=== PATIENT | male | born 1965 | race American Indian/Alaskan Native ===

== ENCOUNTER 2017-03-26 18:51 | Inpatient (IN) | payer MEDICARE, MEDICAID, OTHER ==
[2017-03-26 18:52] VITALS: BMI 44.1
[2017-03-26 20:48] LABS: URINE BILIRUBIN NEGATIVE (NEGATIVE); URINE BLOOD NEGATIVE (NEGATIVE); URINE GLUCOSE (UA) NEGATIVE (NEGATIVE); URINE LEUKOCYTE ESTERASE NEGATIVE Leu/uL (NEGATIVE); URINE NITRATE NEGATIVE (NEGATIVE); URINE PROTEIN NEGATIVE mg/dL (<30 mg/dL); URINE UROBILINOGEN 0.2 E.U./dL (<1 E.U./dL)
[2017-03-26 20:51] LABS: URINE APPEARANCE CLEAR (CLEAR); URINE COLOR YELLOW (YELLOW)
[2017-03-26 20:58] LABS: BASO # 0.07 K/mm3 (0.0-2.0); BASO % 0.5 % (0.0-3.0); EOS # 1.1 (0.0-0.7); EOS % 8.1 % (1.5-5.0); GRAN # 7.83 (1.4-6.5); GRAN % 57.6 % (50.0-68.0); HEMOGLOBIN 12.9 gm/dL (14.0-18.0); LYMPH # 3.7 (1.2-3.4); LYMPH % 27.2 % (22.0-35.0); MEAN CELL VOLUME 95.9 fL (80.0-105.0); MEAN CORPUSCULAR HEMOGLOBIN 31.2 pg (25.0-35.0); MEAN CORPUSCULAR HGB CONC 32.5 g/dl (31.0-37.0); MEAN PLATELET VOLUME 9.6 fl (7.0-11.0); MONO # 0.9 (0.1-0.6); MONO % 6.6 % (1.0-6.0); PLATELET COUNT 371 10^3/uL (120.0-450.0); RBC 4.14 10^6/uL (3.5-6.1); RED CELL DISTRIBUTION WIDTH 13.3 % (11.5-14.5); WHITE BLOOD COUNT 13.6 10^3/ul (4.5-11.0)
[2017-03-26 21:05] LABS: ALBUMIN 3.9 g/dL (3.0-4.8); ALT/SGPT 41 U/L (7-56); AST/SGOT 22 U/L (15-59); BLOOD UREA NITROGEN 14 mg/dL (7-21); CALCIUM 9.2 mg/dL (8.4-10.5); GFR AFRICAN-AMERICAN > 60; GFR NON-AFRICAN AMERICAN > 60
[2017-03-26 21:08] LABS: SALICYLATE < 1 mg/dL (2.0-20.0)
[2017-03-26 21:09] LABS: ACETAMINOPHEN < 10.0 ug/ml (10.0-20.0)
--- NOTE | 2017-03-26 21:10 | ED PDOC ---
Arrival/HPI - General Chief Complaint: Psychiatric Evaluation Time Seen by Provider: 03/26/17 19:17 Historian: Patient - History of Present Illness Narrative History of Present Illness (Text): 03/26/17 19:30 Abilio Larsen is a 51 year old male, whose past medical history includes hypertension and hyperlipidemia, who presents to the Emergency department complaining of depression and suicidal ideation tonight. Patient states he wants to jump off a bridge. Patient denies any homicidal ideation, fever, chills , chest pain, shortness of breath, nausea, vomiting, diarrhea, urinary symptoms , back pain, neck pain, headache, dizziness, or any other complaints. Time/Duration: Other (tonight) Symptom Onset: Gradual Symptom Course: Unchanged Activities at Onset: Rest, Light Past Medical History - Provider Review Nursing Documentation Reviewed: Yes - Cardiac Hx Cardiac Disorders: No Hx Hypertension: Yes - Pulmonary Hx Tuberculosis: No - Neurological HX Cerebrovascular Accident: No Hx Seizures: No - HEENT Hx HEENT Disorder: No - Renal Hx Renal Disorder: No - Endocrine/Metabolic Hx Endocrine Disorders: No - Hematological/Oncological Hx Cancer: No - Integumentary Hx Dermatological Disorder: No - Musculoskeletal/Rheumatological Hx Musculoskeletal Disorders: No - Gastrointestinal Hx Gastrointestinal Disorders: Yes Hx Gastroesophageal Reflux: Yes - Genitourinary/Gynecological Hx Sexually Transmitted Diseases: No - Psychiatric Hx Psychophysiologic Disorder: Yes Hx Depression: Yes Hx Substance Use: No - Surgical History Hx Appendectomy: Yes (March 05, 2017) Other/Comment: hernia repair March 05, 2017 - Anesthesia Hx Anesthesia: No Family/Social History - Physician Review Nursing Documentation Reviewed: Yes Family/Social History: Unknown Family HX Smoking Status: Former Smoker Hx Alcohol Use: Yes Hx Substance Use: No Allergies/Home Meds Allergies/Adverse Reactions: Allergies banana Allergy (Verified 03/26/17 19:12) VOMITING pear Allergy (Verified 03/26/17 19:12) VOMITING Home Medications: Home Meds Medication Instructions Recorded Confirmed Amoxicillin/Clavulanate [Augmentin 1 tab PO BID 03/26/17 03/26/17 875 MG-125 MG] oxyCODONE/Acetaminophen [Percocet 1 tab PO Q4H PRN 03/26/17 03/26/17 5/325 mg Tab] Review of Systems - Physician Review All systems were reviewed & negative as marked: Yes - Review of Systems Constitutional: Normal. absent: Fevers Eyes: Normal ENT: Normal Respiratory: Normal. absent: SOB, Cough Cardiovascular: Normal. absent: Chest Pain Gastrointestinal: Normal. absent: Abdominal Pain, Diarrhea, Nausea, Vomiting Genitourinary Male: Normal. absent: Dysuria, Frequency, Hematuria, Urinary Output Changes Musculoskeletal: Normal. absent: Back Pain, Neck Pain Skin: Normal. absent: Rash Neurological: Normal. absent: Headache, Dizziness Endocrine: Normal Hemo/Lymphatic: Normal Psychiatric: Depression, Suicidal Ideation Physical Exam Vital Signs Reviewed: Yes Vital Signs Temp Pulse Resp BP Pulse Ox 03/26/17 23:02 82 16 124/75 98 03/26/17 21:35 90 17 126/81 98 03/26/17 19:11 98.2 F 93 H 16 125/79 96 Temperature: Afebrile Blood Pressure: Normal Pulse: Regular Respiratory Rate: Normal Appearance: Positive for: Well-Appearing, Non-Toxic, Comfortable Pain Distress: None Mental Status: Positive for: Alert and Oriented X 3 - Systems Exam Head: Present: Atraumatic, Normocephalic Pupils: Present: PERRL Extroacular Muscles: Present: EOMI Conjunctiva: Present: Normal Mouth: Present: Moist Mucous Membranes Neck: Present: Normal Range of Motion Respiratory/Chest: Present: Clear to Auscultation, Good Air Exchange. No: Respiratory Distress, Accessory Muscle Use Cardiovascular: Present: Regular Rate and Rhythm, Normal S1, S2. No: Murmurs Abdomen: Present: Normal Bowel Sounds. No: Tenderness, Distention, Peritoneal Signs Back: Present: Normal Inspection Upper Extremity: Present: Normal Inspection. No: Cyanosis, Edema Lower Extremity: Present: Normal Inspection. No: Edema Neurological: Present: GCS=15, CN II-XII Intact, Speech Normal Skin: Present: Warm, Dry, Normal Color. No: Rashes Psychiatric: Present: Alert, Oriented x 3, Normal Insight, Normal Concentration Medical Decision Making ED Course and Treatment: 03/26/17 19:30 Impression: 51 year old male complaining of depression and suicidal ideation tonight. Differential Diagnosis included but are not limited to: depression vs. suicidal ideation Plan: -- EKG -- CXR -- Labs, alcohol level -- Urinalysis, urine drug screen -- Reassess and disposition Prior Visits: Notes and results from previous visits were reviewed. Progress Notes: Reviewed EKG, NSR at [address]-segment elevations or depressions, no T-wave inversions, normal intervals. 03/26/17 21:30 Reviewed radiology, CXR shows no acute processes. Pt seen and evaluated by PES faisal Woodward, who discussed case with psychiatrist education courses sales representative. Pt will be admitted to Behavioral Health for depression and suicidal ideation. Pt agreeable with plan. - Lab Interpretations Lab Results: 03/26/17 20:45 03/26/17 20:45 Lab Results 03/26/17 20:45: Alcohol, Quantitative < 10 03/26/17 20:45: Salicylates < 1 L, Acetaminophen < 10.0 L 03/26/17 20:45: Sodium 138, Potassium 3.9, Chloride 100, Carbon Dioxide 30, Anion Gap 12, BUN 14, Creatinine 0.9, Est GFR ( Amer) > 60, Est GFR (Non- Af Amer) > 60, Random Glucose 89, Calcium 9.2, Total Bilirubin 0.5, AST 22, ALT 41, Alkaline Phosphatase 59, Total Protein 7.8, Albumin 3.9, Globulin 3.9, Albumin/Globulin Ratio 1.0 L 03/26/17 20:45: WBC 13.6 H, RBC 4.14, Hgb 12.9 L, Hct 39.7 L, MCV 95.9, MCH 31.2 , MCHC 32.5, RDW 13.3, Plt Count 371, MPV 9.6, Gran % 57.6, Lymph % (Auto) 27.2 , [place] % (Auto) 6.6 H, Eos % (Auto) 8.1 H, Baso % (Auto) 0.5, Gran # 7.83 H, Lymph # 3.7 H, [place] # 0.9 H, Eos # 1.1 H, Baso # 0.07 03/26/17 19:45: Urine Opiates Screen Negative, Urine Methadone Screen Negative, Ur Barbiturates Screen Negative, Ur Phencyclidine Scrn Negative, Ur Amphetamines Screen Negative, U Benzodiazepines Scrn Negative, U Oth Cocaine Metabols Negative, U Cannabinoids Screen Negative 03/26/17 19:45: Urine Color Yellow, Urine Appearance Clear, Urine pH 6.0, Ur Specific [place] >= 1.030, Urine Protein Negative, Urine Glucose (UA) Negative, Urine Ketones Negative, Urine Blood Negative, Urine Nitrate Negative, Urine Bilirubin Negative, Urine Urobilinogen 0.2, Ur Leukocyte Esterase Negative I have reviewed the lab results: Yes - RAD Interpretation Radiology Orders: 03/26/17 21:08 CHEST PORTABLE [RAD] Stat Strip Cutting Machine Operator: ED Physician - EKG Interpretation Interpreted by ED Physician: Yes Type: 12 lead EKG - Medication Orders Current Medication Orders: Acetaminophen (Tylenol 325mg Tab) 650 mg PO Q4H PRN PRN Reason: Pain, Mild (1-3) Al Hydrox/Mg Hydrox/Simethicone (Maalox Plus 30 Ml) 30 ml PO DAILY PRN PRN Reason: Upset Stomach Cephalexin Monohydrate (Keflex) 500 mg PO Q6 NICOLE PRN Reason: Protocol Last Admin: 03/28/17 18:04 Dose: 500 mg Citalopram Hydrobromide (Celexa) 20 mg PO DAILY [facility] Last Admin: 03/28/17 08:27 Dose: 20 mg Gabapentin (Neurontin) 300 mg PO TID NICOLE PRN Reason: Protocol Last Admin: 03/28/17 18:04 Dose: 300 mg Re-Assess: Reassess Psych Meds Document 03/28/17 19:04 WP (Rec: 03/28/17 20:11 WP [id number]) Reassess Psych Med Effective Lorazepam (Ativan) 1 mg PO TID NICOLE PRN Reason: Protocol Last Admin: 03/28/17 18:04 Dose: 1 mg Re-Assess: Reassess Psych Meds Document 03/28/17 19:04 WP (Rec: 03/28/17 20:11 WP [id number]) Reassess Psych Med Effective Magnesium Hydroxide (Milk Of Magnesia) 30 ml PO DAILY PRN PRN Reason: Constipation Mupirocin (Bactroban Ointment) 0 gm TOP BID NICOLE Trazodone HCl (Desyrel) 50 mg PO HS [facility] Last Admin: 03/27/17 21:16 Dose: 50 mg Discontinued Medications Gabapentin (Neurontin) 100 mg PO TID NICOLE PRN Reason: Protocol Last Admin: 03/27/17 10:07 Dose: - Scribe Statement The provider has reviewed the documentation as recorded by the Scribyuniel Starr All medical record entries made by the Scribe were at my direction and personally dictated by me. I have reviewed the chart and agree that the record accurately reflects my personal performance of the history, physical exam, medical decision making, and the department course for this patient. I have also personally directed, reviewed, and agree with the discharge instructions and disposition. Disposition/Present on Arrival - Present on Arrival Any Indicators Present on Arrival: No History of DVT/PE: No History of Uncontrolled Diabetes: No Urinary Catheter: No History of Decub. Ulcer: No History Surgical Site Infection Following: None - Disposition Have Diagnosis and Disposition been Completed?: Yes Diagnosis: Anxiety, Depression Disposition: HOSPITALIZED Disposition Time: 21:30 Condition: FAIR
[2017-03-26 21:11] LABS: BARBITURATES, UR NEGATIVE (NEGATIVE); BENZODIAZEPINES, UR NEGATIVE (NEGATIVE); OPIATES, UR NEGATIVE (NEGATIVE); PHENCYCLIDINE, UR NEGATIVE (NEGATIVE)
[2017-03-26] MEDS ORDERED: Alum-Mag Hydrox-Simethicone Susp (30 mL) PO PRN (21:39)
[2017-03-26] MEDS ORDERED: Magnesium Hydroxide Susp 30 ml UD PO PRN (21:39)
--- NOTE | 2017-03-27 01:06 | PCM.BM ---
<Shirley Walker - Last Filed: 03/27/17 01:02> Treatment Plan Problems - Problems identified on initial assessmt DEPRESSION Date Initiated: 03/27/17 Time Initiated: 01:00 Assessment reference: NA Status: Active SUICIDAL IDEATION Date Initiated: 03/27/17 Time Initiated: 01:00 Assessment reference: NA Status: Active Treatment assets and liabiliti Patient Assests: adapts well, cooperative, insightful, motivated, self-reliant, ADL independent, negotiates basic needs, cognitively intact, good interpersonal skills Patient Liabilities: live alone, physical pain, financial problems, relationship conflicts, medical problems, legal issue - Milieu Protocol Maintain good personal hygiene: daily Encourage regular showers, every shift Remind patient to perform daily oral care, every shift Assist patient to perform ADL's Conduct patient checks and document Observation sheet: Q15 minutes Maintain personal safety: every shift Educate patient to report safety concerns to staff, every shift Monitor environment for contraband/sharps Medication safety: Monitor for expected outcome, potential side effects: every shift, Assess barriers to learning: every shift, Assess readiness for medication education: every shift Family Contact Family involvement: Family/SO is involved Discharge/Continuing Care - Education Needs Education Needs: Patient Medication, Patient Diagnosis/Disease Process, Patient Coping Skills, Patient Placement options, Patient Community resources, Patient Pain, Patient Nutrition <Danilo Cao - Last Filed: 03/28/17 10:18> Discharge/Continuing Care - Discharge Discharge Criteria: Tolerates medication w/o severe side effects, Free of Suicidal thoughts, Normal sleep pattern, Reduction of target symptoms <Alyssa [place] - Last Filed: 03/30/17 13:34> - Diagnosis (1) Bipolar 1 disorder Status: Acute Interventions: 03/30/17 13:33 Psychoeducation Psychopharmacology/adjustment of medications as needed/ monitoring possible side effects Monitor blood level of mood stabilizers Evaluate pt on daily basis Compliance with medications and follow up appointments Suicide and homicide risk assessment and prevention, coping strategies, safety plan Relapse prevention Reduction of symptoms Improve functional status Family intervention As outpatient: cognitive behavioral therapy (2) Cocaine abuse Status: Acute Interventions: 03/30/17 13:34 Monitoring withdrawal symptoms Medical detoxification Pharmacotherapy for alcohol/benzos/opioid dependence Maintaining sobriety Relapse prevention Possible rehabilitation Motivational interviewing 12-step programs: AA meetings (3) Alcohol use disorder Status: Acute Interventions: 03/30/17 13:34 Monitoring withdrawal symptoms Medical detoxification Pharmacotherapy for alcohol/benzos/opioid dependence Maintaining sobriety Relapse prevention Possible rehabilitation Motivational interviewing 12-step programs: AA meetings
[2017-03-27 08:02] LABS: GLUCOSE,FASTING 103 mg/dL (65-110); HDL CHOLESTEROL 24 mg/dL (29-60)
[2017-03-27 08:13] LABS: LDL CHOLESTEROL 146 mg/dL (0-129)
--- NOTE | 2017-03-27 10:03 | PCM.PSYCH ---
Initial Psychiatric Evaluation - Initial Psychiatric Evaluation Type of Admission: Voluntary Legal Status: Capacity History of Present Illness and Precipitating Events: Patient is a 51 year old homeless HM, with a long history of bipolar disorder, alcohol and cocaine dependence, multiple admissions-most recently at [facility] 01/29-02/03/17, poor compliance with aftercare recommendations and medications who came to the ED with depression and suicidal ideation to jump off a bridge. I reviewed prior records and met with patient at bedside. Thus far patient has been calm and cooperative on the unit. He is oriented to location, month, year and circumstances. Continues to endorse depression however he denies having any suicidal thoughts. He is coherent and thought process does not demonstrate any profound disorganization. Patient denies hallucinations or paranoia. Regarding drug and alcohol use patient denies history of drug or alcohol problems however prior records indicate diagnosis of cocaine and alcohol dependency. Thus far there have been no behavioral issues on the unit. PSYCHIATRIC HISTORY Multiple prior admissions including 02/19/17-- at [facility], 01/29- at [facility] and 11/02-11/08/2016 at [facility]. He was discharged 02/03/17 from [facility] on a regimen of: Celexa 20 mg PO DAILY Neurontin 300 mg PO TID trazodone 50 mg PO HS PRN Discharge diagnosis was: Bipolar disorder mixed severe with psychotic features Alcohol use disorder moderate Cocaine use disorder moderate SOCIAL HISTORY Patient was born and raised in [place]. He is been since 2004. Patient has two since you are 19 years old and 17 years old. Patient has been home since March 2016. Patient graduated high school in 1983. He is unemployed. Patient a case and he has been arrested in the past for nonpayment of child support. Patient denies any drug or alcohol dependency issues however prior records indicate history of alcohol and cocaine use disorder. Patient denies any tobacco use. Current Medications: Active Medications Generic Name Dose Route Start Last Admin Trade Name Freq PRN Reason Stop Dose Admin Acetaminophen 650 mg 03/26/17 21:39 Tylenol 325mg Tab PO Q4H PRN Pain, Mild (1-3) Al Hydrox/Mg Hydrox/Simethicone 30 ml 03/26/17 21:39 Maalox Plus 30 Ml PO DAILY PRN Upset Stomach Citalopram Hydrobromide 20 mg 03/27/17 10:00 Celexa PO DAILY NICOLE Gabapentin 100 mg 03/27/17 08:00 Neurontin PO TID [facility] Protocol Magnesium Hydroxide 30 ml 03/26/17 21:39 Milk Of Magnesia PO DAILY PRN Constipation Trazodone HCl 50 mg 03/26/17 22:00 03/26/17 22:55 Desyrel PO 50 mg HS NICOLE Administration Past Psychiatric History - Past Psychiatric History Pertinent Medical Hx (Current Medical&Sleep Prob, Allergies): Allergies Allergy/AdvReac Type Severity Reaction Status Date / Time banana Allergy VOMITING Verified 03/26/17 19:12 pear Allergy VOMITING Verified 03/26/17 19:12 Amoxicillin/Clavulanate [Augmentin 875 MG-125 MG] 1 tab PO BID 03/26/17 oxyCODONE/Acetaminophen [Percocet 5/325 mg Tab] 1 tab PO Q4H PRN 03/26/17 DSM 5 DX - DSM 5 DSM 5 Diagnosis: Bipolar disorder mixed severe with psychotic features by history Alcohol use disorder by history Cocaine use disorder by history - Recommended/Plan of Treatment Treatment Recommendations and Plan of Treatment: * Grp, milieu and supportive tx * Neurontin 300 mg TID for anxiety and mood control * Celexa 20 mg daily for depression and anxiety * Trazodone 50 mg HS for depression and off label for insomnia * Ativan 1 mg po TID for anxiety and possible alcohol withdrawal with plan to taper * Awaiting medical consult * Vitals reviewed and noted below Selected Entries 03/27/17 03/27/17 00:05 07:00 Temperature 98.2 F 97.7 F Pulse Rate 92 H 85 Respiratory 20 Rate Blood Pressure 113/64 160/72 H ER LABS AND STUDIES Reviewed EKG, NSR at [address]-segment elevations or depressions, no T-wave inversions, normal intervals. 03/26/17 21:30 Reviewed radiology, CXR shows no acute processes. 03/26/17 20:45: Salicylates < 1 L, Acetaminophen < 10.0 L 03/26/17 20:45: Sodium 138, Potassium 3.9, Chloride 100, Carbon Dioxide 30, Anion Gap 12, BUN 14, Creatinine 0.9, Est GFR ( Amer) > 60, Est GFR (Non- Af Amer) > 60, Random Glucose 89, Calcium 9.2, Total Bilirubin 0.5, AST 22, ALT 41, Alkaline Phosphatase 59, Total Protein 7.8, Albumin 3.9, Globulin 3.9, Albumin/Globulin Ratio 1.0 L 03/26/17 20:45: WBC 13.6 H, RBC 4.14, Hgb 12.9 L, Hct 39.7 L, MCV 95.9, MCH 31.2 , MCHC 32.5, RDW 13.3, Plt Count 371, MPV 9.6, Gran % 57.6, Lymph % (Auto) 27.2 , [place] % (Auto) 6.6 H, Eos % (Auto) 8.1 H, Baso % (Auto) 0.5, Gran # 7.83 H, Lymph # 3.7 H, [place] # 0.9 H, Eos # 1.1 H, Baso # 0.07 03/26/17 19:45: Urine Opiates Screen Negative, Urine Methadone Screen Negative, Ur Barbiturates Screen Negative, Ur Phencyclidine Scrn Negative, Ur Amphetamines Screen Negative, U Benzodiazepines Scrn Negative, U Oth Cocaine Metabols Negative, U Cannabinoids Screen Negative 03/26/17 19:45: Urine Color Yellow, Urine Appearance Clear, Urine pH 6.0, Ur Specific [place] >= 1.030, Urine Protein Negative, Urine Glucose (UA) Negative, Urine Ketones Negative, Urine Blood Negative, Urine Nitrate Negative, Urine Bilirubin Negative, Urine Urobilinogen 0.2, Ur Leukocyte Esterase Negative FLOOR LABS 03/27/17 03/27/17 07:48 07:48 Fasting Glucose 103 Triglycerides 224 H Cholesterol 192 LDL Cholesterol Direct 146 H HDL Cholesterol 24 L TSH 3rd Generation 0.63
--- NOTE | 2017-03-27 10:14 | CARD ---
APPROVED REPORT EKG Measurement Heart [id number] <Conclusion> Normal sinus rhythm LAD NSSTW changes Prolonged QTc
--- NOTE | 2017-03-27 12:27 | RAD ---
HISTORY: cp COMPARISON: No prior. FINDINGS: LUNGS: No active pulmonary disease. PLEURA: No significant pleural effusion identified, no pneumothorax apparent. CARDIOVASCULAR: Normal. OSSEOUS STRUCTURES: No significant abnormalities. VISUALIZED UPPER ABDOMEN: Normal. OTHER FINDINGS: None. IMPRESSION: No active disease.
--- NOTE | 2017-03-27 17:50 | CON ---
DATE: 03/27/2017 HISTORY OF PRESENT ILLNESS: I saw the patient in practice this morning, eventually we were alone in the dining room, he is on a second tray of breakfast. He is telling me his history while we go up and down. He is here for anxiety and for depression. He is a 51-year-old man, who complains of depression and suicidal ideation. He wanted to jump off the bridge. Otherwise he is at this time doing quite well. PAST MEDICAL HISTORY: He has a past medical history of hypertension. He tells me he stopped taking his medication. He has been depressed before. He has a history of GERD, not taking any medication for that. He had an appendectomy and a hernia repair on 03/05/2017. He has no pain from that. He said he is healing up very well. FAMILY HISTORY: Unknown family history. SOCIAL HISTORY: He is a former smoker. He still drinks alcohol. Denies substance abuse. ALLERGIES: HE HAS ALLERGIES TO BANANA AND PEAR. MEDICATIONS: He was on Augmentin and oxycodone, Percocet for the pain. REVIEW OF SYSTEMS: No acute vision changes or hearing changes. No sore throat. No neck pain. No chest pain. No palpitations. No shortness of breath. No cough. No abdominal pain. No diarrhea, constipation, nausea, vomiting, and the surgical site is fine. No problems urinating. No back pain. No leg pain. No rashes or skin issues. No headache or dizziness. He is a little bit depressed and suicidal in the emergency room yesterday. He feels very calm at this time. PHYSICAL EXAMINATION GENERAL: Well appearing, nontoxic, comfortable. Talking very easily. No pressured speech. He is alert and oriented x3, very comfortable and smiling. VITAL SIGNS: He has a 98.2 temperature, 93 pulse, 16 respiratory rate, 125/79 blood pressure, 96% O2 saturation. HEENT: His head is atraumatic and normocephalic. His extraocular muscles are intact. Pupils are equal and reactive to light and accommodation. Throat is moist. Mucous membranes are clear. NECK: Supple. HEART: Regular rate. Normal S1, S2. LUNGS: Decreased breath sounds. Clear to auscultation. ABDOMEN: Morbidly obese, soft, nontender. Positive bowel sounds. No guarding, no rebound, no CVA tenderness. He is definitely enjoying his breakfast, he is on his second breakfast. EXTREMITIES: Have no edema bilaterally. Moves all 4 extremities well with good range of motion. GCS is 15. CAPACITOR REPAIRER: Cranial nerves II through XII grossly intact. Normal speech. Can stick his tongue at midline. He could close his eyes tight. He can raise his arms over his head. He can squeeze both fingers equally. He smiles, he frowns. No neurological deficit I could see at this time. Comfortable at this time. Thyroid midline. No palpable appreciable lymphadenopathy. LABORATORY DATA: He had some tests done. He has urine which was normal for toxicology, he also had a urine that was clean for infection. He has a 138 sodium, potassium 3.9, BUN 14, creatinine 0.9. GFR greater than 60. Sugar 89, calcium is 9.2, total bilirubin is 0.5, AST is 22, ALT is 41, alkaline phosphatase is 59, total protein is 7.8, albumin is 3.9. He has triglycerides of 224, little bit elevated. Cholesterol is 192, LDL cholesterol is 146. His TSH is 0.63. He has a 13.6 white count which is elevated. He is having a leukocytosis, not sure why. A 12.9 hemoglobin, 39.7 hematocrit with a 371 platelets. His chest x-ray is pending. I will order lab for tomorrow. Repeat the CBC, watch his white count. His blood pressure last one was 160/72, was 113/64 before that. I will watch his blood pressure too with a history of hypertension. Right now, I am not going to put him on an antibiotic or a blood pressure pill. If it is again high tomorrow, I will start him on it tomorrow. He is comfortable eating, smiling, no acute distress. Thank you for letting me participate in the care of the patient, who is here for depression. Kimani Boateng DO [email or web address]
[2017-03-28 08:44] LABS: HEMOGLOBIN 12.4 gm/dL (14.0-18.0); MEAN CELL VOLUME 96.6 fL (80.0-105.0); MEAN CORPUSCULAR HEMOGLOBIN 30.5 pg (25.0-35.0); MEAN CORPUSCULAR HGB CONC 31.6 g/dl (31.0-37.0); MEAN PLATELET VOLUME 9.5 fl (7.0-11.0); RBC 4.06 10^6/uL (3.5-6.1); RED CELL DISTRIBUTION WIDTH 13.2 % (11.5-14.5); WHITE BLOOD COUNT 9.1 10^3/ul (4.5-11.0)
[2017-03-28 08:49] LABS: ALBUMIN 3.7 g/dL (3.0-4.8); ALT/SGPT 31 U/L (7-56); AST/SGOT 18 U/L (15-59); BLOOD UREA NITROGEN 17 mg/dL (7-21); CALCIUM 9.1 mg/dL (8.4-10.5); GFR AFRICAN-AMERICAN > 60; GFR NON-AFRICAN AMERICAN > 60
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
--- NOTE | 2017-03-28 13:44 | PN ---
SUBJECTIVE: I saw him in the psychiatric floor, he had surgery two weeks ago for an umbilicus hernia repair, now it is oozing. He did not tell me this yesterday, no pain, still has no pain and there was pus now coming from the umbilicus surgery to evaluate, infectious disease and we stared him on Keflex. He is currently on Ativan, Celexa, Desyrel, milk of magnesia, Maalox, Neurontin, and Tylenol. PHYSICAL EXAMINATION: VITAL SIGNS: Temperature 97.7, pulse 91, blood pressure 124/70, O2 sat 90% on room air. HEENT: Head is atraumatic and normocephalic. HEART: Regular rate. LUNGS: Clear to auscultation. ABDOMEN: Soft, and obese. With a umbilicus oozing where the surgery was with pus. EXTREMITIES: No edema. LABORATORY DATA: He has a 9.1 white count better, 12.4 hemoglobin, 39.2 hematocrit, 348 platelets. Sodium 141, potassium 4.3, BUN 17, creatinine 0.8, GFR is greater than 60. Sugar 105, calcium 9.1, total bilirubin 0.4, AST is 18, ALT is 31, alkaline phosphatase is 51, total protein 7.3. TSH 0.63. Urine is clear. I called in surgery to evaluate the surgical procedure from two weeks ago. I called the infectious disease for antibiotics. I started him on Keflex. I will watch him closely. This is a progress note on Abilio Larsen. I am going to consults medicine in the psychiatric floor. He has got depression, anxiety, hypertension, , obesity, have leukocyte improved, and umbilical hernia repair, infection with oozing. Kimani Boateng DO MTDD
--- NOTE | 2017-03-28 14:14 | PCM.PYCHPN ---
Psychiatric Progress Note - Psychiatric Progress Note Patient seen today, length of contact: 30min Patient Chief Complaint: "I had a lot of problems..." Problems Identified/Issues Discussed: Suicide/ homicide prevention, past psychiatric h/o, current psychiatric symptoms , medical problems, risk/benefits and alternatives of medications, medications compliance, coping strategies, substance abuse h/o, relapse prevention, importance of follow up with psychiatrist and therapist, discharge plan. Medical Problems: s/p laparoscopic appendectomy pt is on antibiotics now. was seen by surgical and medical teams see notes for more detailed information Diagnostic Results: 03/28/17 08:34 03/28/17 08:34 Lab Results 03/28/17 08:34: Sodium 141, Potassium 4.3, Chloride 103, Carbon Dioxide 28, Anion Gap 14, BUN 17, Creatinine 0.8, Est GFR ( Amer) > 60, Est GFR (Non- Af Amer) > 60, Random Glucose 105, Calcium 9.1, Total Bilirubin 0.4, AST 18, ALT 31, Alkaline Phosphatase 51, Total Protein 7.3, Albumin 3.7, Globulin 3.7, Albumin/Globulin Ratio 1.0 L 03/28/17 08:34: WBC 9.1 D, RBC 4.06, Hgb 12.4 L, Hct 39.2 L, MCV 96.6, MCH 30.5 , MCHC 31.6, RDW 13.2, Plt Count 348, MPV 9.5 03/27/17 07:48: RPR Nonreactive 03/27/17 07:48: TSH 3rd Generation 0.63 03/27/17 07:48: Fasting Glucose 103, Triglycerides 224 H, Cholesterol 192, LDL Cholesterol Direct 146 H, HDL Cholesterol 24 L 03/26/17 20:45: Alcohol, Quantitative < 10 03/26/17 20:45: Salicylates < 1 L, Acetaminophen < 10.0 L 03/26/17 20:45: Sodium 138, Potassium 3.9, Chloride 100, Carbon Dioxide 30, Anion Gap 12, BUN 14, Creatinine 0.9, Est GFR ( Amer) > 60, Est GFR (Non- Af Amer) > 60, Random Glucose 89, Calcium 9.2, Total Bilirubin 0.5, AST 22, ALT 41, Alkaline Phosphatase 59, Total Protein 7.8, Albumin 3.9, Globulin 3.9, Albumin/Globulin Ratio 1.0 L 03/26/17 20:45: WBC 13.6 H, RBC 4.14, Hgb 12.9 L, Hct 39.7 L, MCV 95.9, MCH 31.2 , MCHC 32.5, RDW 13.3, Plt Count 371, MPV 9.6, Gran % 57.6, Lymph % (Auto) 27.2 , [place] % (Auto) 6.6 H, Eos % (Auto) 8.1 H, Baso % (Auto) 0.5, Gran # 7.83 H, Lymph # 3.7 H, [place] # 0.9 H, Eos # 1.1 H, Baso # 0.07 03/26/17 19:45: Urine Opiates Screen Negative, Urine Methadone Screen Negative, Ur Barbiturates Screen Negative, Ur Phencyclidine Scrn Negative, Ur Amphetamines Screen Negative, U Benzodiazepines Scrn Negative, U Oth Cocaine Metabols Negative, U Cannabinoids Screen Negative 03/26/17 19:45: Urine Color Yellow, Urine Appearance Clear, Urine pH 6.0, Ur Specific [place] >= 1.030, Urine Protein Negative, Urine Glucose (UA) Negative, Urine Ketones Negative, Urine Blood Negative, Urine Nitrate Negative, Urine Bilirubin Negative, Urine Urobilinogen 0.2, Ur Leukocyte Esterase Negative Vital Signs Temp Pulse Resp BP Pulse Ox 03/27/17 16:00 91 H 124/73 03/27/17 07:00 97.7 F 85 160/72 H 03/27/17 00:05 98.2 F 92 H 20 113/64 03/26/17 23:02 82 16 124/75 98 03/26/17 21:35 90 17 126/81 98 03/26/17 19:11 98.2 F 93 H 16 125/79 96 DSM 5 Symptoms Update: As per 's assessment: Patient is a 51 year old homeless HM, with a long history of bipolar disorder, alcohol and cocaine dependence, multiple admissions-most recently at [facility] 01/29-02/03/17, poor compliance with aftercare recommendations and medications who came to the ED with depression and suicidal ideation to jump off a bridge. patient was resumed on the medications, patient was seen today at the morning time at the treatment team meeting, medications reviewed, labs reviewed, previous records reviewed. Patient reported that he is stressed out because of financial situation as well as personal relationship problem with his girlfriend, patient also reported that he was depressed for a while. Patient reported that she had thoughts of jumping off the breech and also he came to the hospital looking for help. patient denied any psychotic symptoms, pt is coherent and thought process does not demonstrate any profound disorganization. Patient denies hallucinations or paranoia. Regarding drug and alcohol use patient denies history of drug or alcohol problems however prior records indicate diagnosis of cocaine and alcohol dependency. as per RN report pt is compliant with meds no behavioral issues. pt tolerates meds well, no side effects observed or reported, AIMS 0, no EPS. Impression: DSMV: as per h/o: Bipolar disorder mixed severe with psychotic features Alcohol use disorder moderate Cocaine use disorder moderate s/p laparascopic appendectomy, February 2017 Medication Change: Yes (neurontin increased) Medical Record Reviewed: Yes Consults ordered or reviewed: medical and surgical consult appreciated Mental Status Examination - Cognitive Function Orientation: Person, Place, Situation, Time Memory: Intact Attention: Poor Concentration: Poor Association: WNL Fund of Knowledge: WNL - Mood Mood: Depressed - Affect Affect: Constricted - Speech Speech: Appropriate - Formal Thought Process Formal Thought Process: No Impairment - Suicidal Ideation Suicidal Ideation: No - Homicidal Ideation Homicidal Ideation: No Goal/Treatment Plan - Goal/Treatment Plan Need for Continued Stay: Remain at risks for inpatient hospitalization, Severe depression anxiety, Discharge may exacerbated symptoms, Severe functional impairment Progress Toward Problem(s) and Goals/Treatment Plan: milieu, structure, supportive therapy Celexa 20 mg PO DAILY start that over the weekend Neurontin 300 mg PO TID start that over the weekend trazodone 50 mg PO HS PRN start that over the weekend social media marketing 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 Estimated Date of D/C: 04/01/17
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
[2017-03-29 08:29] LABS: HEMOGLOBIN 12.7 g/dL (14.0-18.0); MEAN CELL VOLUME 95.2 fl (80.0-105.0); MEAN CORPUSCULAR HEMOGLOBIN 30.6 pg (25.0-35.0); MEAN CORPUSCULAR HGB CONC 32.2 g/dl (31.0-37.0); MEAN PLATELET VOLUME 9.6 fl (7.0-11.0); RBC 4.15 10^6/uL (3.5-6.1); RED CELL DISTRIBUTION WIDTH 13.1 % (11.5-14.5); WHITE BLOOD COUNT 9.4 10^3/ul (4.5-11.0)
--- NOTE | 2017-03-29 08:49 | CP.PCM.PN ---
Subjective - Date & Time of Evaluation Date of Evaluation: 03/29/17 Time of Evaluation: 08:00 - Subjective Subjective: Patient is a 51 year old male s/p laparoscopic appendectomy and ventral hernia repair [place] [facility] Patient was seen and examined at bedside AAO x3. Patient has no acute complaints at this time. States incision site itches and is still draining from time to time. Denies fevers, chills, nausea, vomiting, diarrhea. Objective - Vital Signs/Intake and Output Vital Signs (last 24 hours): Temp Pulse Resp BP Pulse Ox 97.5 F L 92 H 20 118/73 98 03/29/17 07:55 03/29/17 07:55 03/29/17 07:55 03/29/17 07:55 03/26/17 23:02 - Medications Medications: Current Medications Acetaminophen (Tylenol 325mg Tab) 650 mg PO Q4H PRN PRN Reason: Pain, Mild (1-3) Al Hydrox/Mg Hydrox/Simethicone (Maalox Plus 30 Ml) 30 ml PO DAILY PRN PRN Reason: Upset Stomach Cephalexin Monohydrate (Keflex) 500 mg PO Q6 [facility] PRN Reason: Protocol Last Admin: 03/29/17 06:29 Dose: 500 mg Citalopram Hydrobromide (Celexa) 20 mg PO DAILY [facility] Last Admin: 03/29/17 08:30 Dose: 20 mg Gabapentin (Neurontin) 300 mg PO TID [facility] PRN Reason: Protocol Last Admin: 03/29/17 08:30 Dose: 300 mg Lorazepam (Ativan) 1 mg PO TID [facility] PRN Reason: Protocol Last Admin: 03/29/17 08:30 Dose: 1 mg Magnesium Hydroxide (Milk Of Magnesia) 30 ml PO DAILY PRN PRN Reason: Constipation Mupirocin (Bactroban Ointment) 0 gm TOP BID [facility] Last Admin: 03/29/17 08:42 Dose: 2 % Trazodone HCl (Desyrel) 50 mg PO HS [facility] Last Admin: 03/28/17 21:38 Dose: 50 mg - Labs Labs: 03/29/17 08:00 03/28/17 08:34 - Constitutional Appears: Well - Head Exam Head Exam: ATRAUMATIC, NORMAL INSPECTION, NORMOCEPHALIC - ENT Exam ENT Exam: Mucous Membranes Moist, Normal Exam - Respiratory Exam Respiratory Exam: Clear to Ausculation Bilateral, NORMAL BREATHING PATTERN - Cardiovascular Exam Cardiovascular Exam: REGULAR RHYTHM, +S1, +S2 - GI/Abdominal Exam GI & Abdominal Exam: Soft. absent: Guarding, Tenderness - Skin Additional comments: 1x1cm open laparoscopic incision below the umbilicus, 2cm deep, with exudates, not actively draining, no surrounding erythema. 2 x well healed laparascopic incisions to the midline Assessment and Plan - Assessment and Plan (Free Text) Assessment: 1. Possible infection of open incision s/p Lap appy - No surgical intervention needed at this time - C/W keflex and bacrtoban ointment - F/U with patient's surgeon - Home self-wound care - Please re-consult PRN Follow with recs as per Dr. Richards
[2017-03-29 08:50] LABS: ALBUMIN 3.8 g/dL (3.0-4.8); ALT/SGPT 27 U/L (7-56); AST/SGOT 25 U/L (15-59); BLOOD UREA NITROGEN 15 mg/dL (7-21); CALCIUM 9.3 mg/dL (8.4-10.5); GFR AFRICAN-AMERICAN > 60; GFR NON-AFRICAN AMERICAN > 60
--- NOTE | 2017-03-29 11:01 | PN ---
SUBJECTIVE: He is now on Keflex p.o. antibiotics for his umbilicus oozing from surgery, he had 2 weeks ago for hernia repair. She was seen by infectious disease and surgery. There is no surgery at this time. They do recommend after the p.o. antibiotics, we send back to Dr. Johnson, his surgeon. He is resting comfortably and trying to improve. PHYSICAL EXAMINATION: VITAL SIGNS: 97.5 temperature, 92 pulse, 118/70 blood pressure, 20 respiratory rate. HEENT: Head is atraumatic and normocephalic. Throat is moist. NECK: Supple. HEART: Regular rate. LUNGS: Decreased breath sounds, but clear. No wheezing. No rhonchi. No rales. ABDOMEN: Mildly obese, soft, positive bowel sounds, he just have oozing coming from the umbilicus for the incision. EXTREMITIES: No edema. MEDICATIONS: He is currently on Bactroban cream, Celexa, Desyrel, Keflex, Maalox, milk of magnesium, Neurontin, and Tylenol. LABORATORY DATA: RPR nonreactive. Rony brice has a 9.4 white count, 12.7 hemoglobin, 39.5 hematocrit, and 341 platelets. 141 sodium, potassium 4.3, BUN 17, creatinine 0.8, GFR is greater than 60, sugar is 105, calcium 9.1, total bilirubin is 0.4, AST is 18, ALT is 31, alkaline phosphatase is 51, total protein 7.3. TSH is 0.63. PLAN: We will continue aggressive treatment as per psychiatry. I appreciate Infectious Disease and surgery input. Continue with the p.o. antibiotics. Hopefully to see Dr. Johnson, his surgeon. We will watch his abdomen for further leakage. Kimani Boateng DO MTDD
--- NOTE | 2017-03-29 13:08 | PCM.PYCHPN ---
Psychiatric Progress Note - Psychiatric Progress Note Patient seen today, length of contact: 30min Patient Chief Complaint: "I slept better" Problems Identified/Issues Discussed: Suicide/ homicide prevention, past psychiatric h/o, current psychiatric symptoms , medical problems, risk/benefits and alternatives of medications, medications compliance, coping strategies, substance abuse h/o, relapse prevention, importance of follow up with psychiatrist and therapist, discharge plan. Medical Problems: s/p laparoscopic appendectomy pt is on antibiotics now. was seen by surgical and medical teams see notes for more detailed information Diagnostic Results: 03/28/17 08:34 03/28/17 08:34 Lab Results 03/28/17 08:34: Sodium 141, Potassium 4.3, Chloride 103, Carbon Dioxide 28, Anion Gap 14, BUN 17, Creatinine 0.8, Est GFR ( Amer) > 60, Est GFR (Non- Af Amer) > 60, Random Glucose 105, Calcium 9.1, Total Bilirubin 0.4, AST 18, ALT 31, Alkaline Phosphatase 51, Total Protein 7.3, Albumin 3.7, Globulin 3.7, Albumin/Globulin Ratio 1.0 L 03/28/17 08:34: WBC 9.1 D, RBC 4.06, Hgb 12.4 L, Hct 39.2 L, MCV 96.6, MCH 30.5 , MCHC 31.6, RDW 13.2, Plt Count 348, MPV 9.5 03/27/17 07:48: RPR Nonreactive 03/27/17 07:48: TSH 3rd Generation 0.63 03/27/17 07:48: Fasting Glucose 103, Triglycerides 224 H, Cholesterol 192, LDL Cholesterol Direct 146 H, HDL Cholesterol 24 L 03/26/17 20:45: Alcohol, Quantitative < 10 03/26/17 20:45: Salicylates < 1 L, Acetaminophen < 10.0 L 03/26/17 20:45: Sodium 138, Potassium 3.9, Chloride 100, Carbon Dioxide 30, Anion Gap 12, BUN 14, Creatinine 0.9, Est GFR ( Amer) > 60, Est GFR (Non- Af Amer) > 60, Random Glucose 89, Calcium 9.2, Total Bilirubin 0.5, AST 22, ALT 41, Alkaline Phosphatase 59, Total Protein 7.8, Albumin 3.9, Globulin 3.9, Albumin/Globulin Ratio 1.0 L 03/26/17 20:45: WBC 13.6 H, RBC 4.14, Hgb 12.9 L, Hct 39.7 L, MCV 95.9, MCH 31.2 , MCHC 32.5, RDW 13.3, Plt Count 371, MPV 9.6, Gran % 57.6, Lymph % (Auto) 27.2 , [place] % (Auto) 6.6 H, Eos % (Auto) 8.1 H, Baso % (Auto) 0.5, Gran # 7.83 H, Lymph # 3.7 H, [place] # 0.9 H, Eos # 1.1 H, Baso # 0.07 03/26/17 19:45: Urine Opiates Screen Negative, Urine Methadone Screen Negative, Ur Barbiturates Screen Negative, Ur Phencyclidine Scrn Negative, Ur Amphetamines Screen Negative, U Benzodiazepines Scrn Negative, U Oth Cocaine Metabols Negative, U Cannabinoids Screen Negative 03/26/17 19:45: Urine Color Yellow, Urine Appearance Clear, Urine pH 6.0, Ur Specific [place] >= 1.030, Urine Protein Negative, Urine Glucose (UA) Negative, Urine Ketones Negative, Urine Blood Negative, Urine Nitrate Negative, Urine Bilirubin Negative, Urine Urobilinogen 0.2, Ur Leukocyte Esterase Negative Vital Signs Temp Pulse Resp BP Pulse Ox 03/27/17 16:00 91 H 124/73 03/27/17 07:00 97.7 F 85 160/72 H 03/27/17 00:05 98.2 F 92 H 20 113/64 03/26/17 23:02 82 16 124/75 98 03/26/17 21:35 90 17 126/81 98 03/26/17 19:11 98.2 F 93 H 16 125/79 96 DSM 5 Symptoms Update: Patient is a 51 year old homeless HM, with a long history of bipolar disorder, alcohol and cocaine dependence, multiple admissions-most recently at [facility] 01/29-02/03/17, poor compliance with aftercare recommendations and medications who came to the ED with depression and suicidal ideation to jump off a bridge. patient was seen today at the morning time at the [facility], pt c/o right knee pain, pt had injury in May, will call ortho consult. Patient reported that he is still depressed, at times hopeless, denied thoughts of harming self or others, sleep improving, pt denied any side effects from meds. patient denied any psychotic symptoms, pt is coherent and thought process does not demonstrate any profound disorganization but at times circumstantial. Patient denies hallucinations or paranoia. Regarding drug and alcohol use patient denies history of drug or alcohol problems however prior records indicate diagnosis of cocaine and alcohol dependency. as per RN report pt is compliant with meds no behavioral issues. pt tolerates meds well, no side effects observed or reported, AIMS 0, no EPS. Impression: DSMV: as per h/o: Bipolar disorder mixed severe with psychotic features Alcohol use disorder moderate Cocaine use disorder moderate s/p laparascopic appendectomy, February 2017 Medication Change: Yes (neurontin increased) Medical Record Reviewed: Yes Consults ordered or reviewed: medical and surgical consult appreciated ortho consult will be called, right knee injury May 2016 Mental Status Examination - Cognitive Function Orientation: Person, Place, Situation, Time Memory: Intact Attention: Poor Concentration: Poor Association: WNL Fund of Knowledge: WNL - Mood Mood: Depressed - Affect Affect: Constricted - Speech Speech: Appropriate - Formal Thought Process Formal Thought Process: No Impairment - Suicidal Ideation Suicidal Ideation: No - Homicidal Ideation Homicidal Ideation: No Goal/Treatment Plan - Goal/Treatment Plan Need for Continued Stay: Remain at risks for inpatient hospitalization, Severe depression anxiety, Discharge may exacerbated symptoms, Severe functional impairment Progress Toward Problem(s) and Goals/Treatment Plan: milieu, structure, supportive therapy Celexa 20 mg PO DAILY start that over the weekend Neurontin 300 mg PO TID start that over the weekend trazodone 50 mg PO HS PRN start that over the weekend ortho consult social sciences professor evaluation Medical team and surgical team evaluation appreciated Patient is on antibiotics We'll monitor patient closely. Estimated Date of D/C: 04/01/17
[2017-03-30 07:31] VITALS: O2SAT 20
--- NOTE | 2017-03-30 15:03 | PCM.PYCHPN ---
Psychiatric Progress Note - Psychiatric Progress Note Patient seen today, length of contact: 30min Patient Chief Complaint: "I am doing little better" Problems Identified/Issues Discussed: Suicide/ homicide prevention, past psychiatric h/o, current psychiatric symptoms , medical problems, risk/benefits and alternatives of medications, medications compliance, coping strategies, substance abuse h/o, relapse prevention, importance of follow up with psychiatrist and therapist, discharge plan. Medical Problems: s/p laparoscopic appendectomy pt is on antibiotics now. was seen by surgical and medical teams see notes for more detailed information ortho consult was called Diagnostic Results: 03/28/17 08:34 03/28/17 08:34 Lab Results 03/28/17 08:34: Sodium 141, Potassium 4.3, Chloride 103, Carbon Dioxide 28, Anion Gap 14, BUN 17, Creatinine 0.8, Est GFR ( Amer) > 60, Est GFR (Non- Af Amer) > 60, Random Glucose 105, Calcium 9.1, Total Bilirubin 0.4, AST 18, ALT 31, Alkaline Phosphatase 51, Total Protein 7.3, Albumin 3.7, Globulin 3.7, Albumin/Globulin Ratio 1.0 L 03/28/17 08:34: WBC 9.1 D, RBC 4.06, Hgb 12.4 L, Hct 39.2 L, MCV 96.6, MCH 30.5 , MCHC 31.6, RDW 13.2, Plt Count 348, MPV 9.5 03/27/17 07:48: RPR Nonreactive 03/27/17 07:48: TSH 3rd Generation 0.63 03/27/17 07:48: Fasting Glucose 103, Triglycerides 224 H, Cholesterol 192, LDL Cholesterol Direct 146 H, HDL Cholesterol 24 L 03/26/17 20:45: Alcohol, Quantitative < 10 03/26/17 20:45: Salicylates < 1 L, Acetaminophen < 10.0 L 03/26/17 20:45: Sodium 138, Potassium 3.9, Chloride 100, Carbon Dioxide 30, Anion Gap 12, BUN 14, Creatinine 0.9, Est GFR ( Amer) > 60, Est GFR (Non- Af Amer) > 60, Random Glucose 89, Calcium 9.2, Total Bilirubin 0.5, AST 22, ALT 41, Alkaline Phosphatase 59, Total Protein 7.8, Albumin 3.9, Globulin 3.9, Albumin/Globulin Ratio 1.0 L 03/26/17 20:45: WBC 13.6 H, RBC 4.14, Hgb 12.9 L, Hct 39.7 L, MCV 95.9, MCH 31.2 , MCHC 32.5, RDW 13.3, Plt Count 371, MPV 9.6, Gran % 57.6, Lymph % (Auto) 27.2 , [place] % (Auto) 6.6 H, Eos % (Auto) 8.1 H, Baso % (Auto) 0.5, Gran # 7.83 H, Lymph # 3.7 H, [place] # 0.9 H, Eos # 1.1 H, Baso # 0.07 03/26/17 19:45: Urine Opiates Screen Negative, Urine Methadone Screen Negative, Ur Barbiturates Screen Negative, Ur Phencyclidine Scrn Negative, Ur Amphetamines Screen Negative, U Benzodiazepines Scrn Negative, U Oth Cocaine Metabols Negative, U Cannabinoids Screen Negative 03/26/17 19:45: Urine Color Yellow, Urine Appearance Clear, Urine pH 6.0, Ur Specific [place] >= 1.030, Urine Protein Negative, Urine Glucose (UA) Negative, Urine Ketones Negative, Urine Blood Negative, Urine Nitrate Negative, Urine Bilirubin Negative, Urine Urobilinogen 0.2, Ur Leukocyte Esterase Negative Vital Signs Temp Pulse Resp BP Pulse Ox 03/27/17 16:00 91 H 124/73 03/27/17 07:00 97.7 F 85 160/72 H 03/27/17 00:05 98.2 F 92 H 20 113/64 03/26/17 23:02 82 16 124/75 98 03/26/17 21:35 90 17 126/81 98 03/26/17 19:11 98.2 F 93 H 16 125/79 96 Temp Pulse Resp BP Pulse Ox 97.3 F L 91 H 20 119/74 20 L 03/30/17 07:30 03/30/17 07:30 03/29/17 07:55 03/30/17 07:30 03/30/17 07:30 DSM 5 Symptoms Update: Patient is a 51 year old homeless HM, with a long history of bipolar disorder, alcohol and cocaine dependence, multiple admissions-most recently at [facility] 01/29-02/03/17, poor compliance with aftercare recommendations and medications who came to the ED with depression and suicidal ideation to jump off a bridge. patient was seen today in his room, pt c/o right knee pain, pt had injury in May, will call ortho consult. Patient reported that he is still depressed, at times hopeless, denied thoughts of harming self or others, sleep improving, "I was really sick, I wanted to end it all, now I feel little better", pt denied any side effects from meds. patient denied any psychotic symptoms, pt is coherent and thought process does not demonstrate any profound disorganization but at times circumstantial. Patient denies hallucinations or paranoia. Regarding drug and alcohol use patient denies history of drug or alcohol problems however prior records indicate diagnosis of cocaine and alcohol dependency. as per RN report pt is compliant with meds no behavioral issues. pt tolerates meds well, no side effects observed or reported, AIMS 0, no EPS. Impression: DSMV: as per h/o: Bipolar disorder mixed severe with psychotic features Alcohol use disorder moderate Cocaine use disorder moderate s/p laparascopic appendectomy, February 2017 Medication Change: Yes (neurontin increased) Medical Record Reviewed: Yes Consults ordered or reviewed: medical and surgical consult appreciated ortho consult will be called, right knee injury May 2016 Mental Status Examination - Cognitive Function Orientation: Person, Place, Situation, Time Memory: Intact Attention: Poor (some improvement) Concentration: Poor (some improvement) Association: WNL Fund of Knowledge: WNL - Mood Mood: Depressed - Affect Affect: Constricted (ut more reactive today) - Speech Speech: Appropriate - Formal Thought Process Formal Thought Process: No Impairment - Suicidal Ideation Suicidal Ideation: No - Homicidal Ideation Homicidal Ideation: No Goal/Treatment Plan - Goal/Treatment Plan Need for Continued Stay: Remain at risks for inpatient hospitalization, Severe depression anxiety, Discharge may exacerbated symptoms, Severe functional impairment Progress Toward Problem(s) and Goals/Treatment Plan: milieu, structure, supportive therapy Celexa 20 mg PO DAILY start that over the weekend Neurontin 600 mg PO TID start that over the weekend trazodone 50 mg PO HS PRN start that over the weekend ortho consult director of social media marketing evaluation Medical team and surgical team evaluation appreciated Patient is on antibiotics We'll monitor patient closely. Estimated Date of D/C: 04/01/17
--- NOTE | 2017-03-30 17:28 | PN ---
DATE: SUBJECTIVE: I saw Mr. Larsen in his bed. He slept well. He is still having oozing from the umbilical hernia repair 2 weeks ago, but he is comfortable. No pain. He is eating well, participating, and feeling better. PHYSICAL EXAMINATION: VITAL SIGNS: 97.3 temperature, 91 pulse, 119/74 blood pressure, and 90% O2 sat on room air. HEENT: Head is atraumatic and normocephalic. HEART: Regular rate. CHEST: Clear to auscultation. ABDOMEN: Soft. There is oozing from the belly button and is on Bactroban cream and Keflex. EXTREMITIES: No edema. MEDICATIONS: Ativan, Bactroban cream, Celexa, Desyrel, Keflex, Maalox, milk of magnesia, Neurontin, and Tylenol. I do think he is slowly improving with psychiatric care. He has severe depression and anxiety. He also have an umbilical hernia repair that is oozing. He is told to follow up with Dr. Johnson, surgical doctor when he gets down to psychiatric floor. His last labs were good with 9.4 white count, 12.7 hemoglobin, and 341 platelets. SMA-20 was very good. We to follow him and his abdominal oozing, antibiotics, and aggressive treatment care. Kimani Boateng DO [facility]ITAL[facility]ivien
--- NOTE | 2017-03-31 14:17 | MRI ---
PROCEDURE: MRI Right Knee HISTORY: Pain. COMPARISON: None available. TECHNIQUE: Multiecho multiplanar sequences were performed through the right knee. FINDINGS: ANTERIOR CRUCIATE LIGAMENT:: Intact. POSTERIOR CRUCIATE LIGAMENT:: Intact. MEDIAL MENISCUS:: Intact. LATERAL MENISCUS:: Intact. MEDIAL COLLATERAL LIGAMENT:: Intact. LATERAL COLLATERAL LIGAMENT COMPLEX:: Intact. QUADRICEPS TENDON:: The quadriceps tendon appears to be torn and atrophic with only a few remaining anterior fibers. There is also anterior tilt of the patella and shortening of the patellar tendon. The findings are consistent with quadriceps tendon rupture. There is a small joint effusion. PATELLAR TENDON:: Intact. CARTILAGE:: Intact. JOINT FLUID:: Small joint effusion and small Thompson cyst OSSEOUS STRUCTURES:: Intact. OTHER FINDINGS: None. IMPRESSION: Tear of the quadriceps tendon. See comments
--- NOTE | 2017-03-31 15:57 | CARD ---
APPROVED REPORT EXAM: Two-dimensional and M-mode echocardiogram with Doppler and color Doppler. INDICATION Pre-Op 2D DIMENSIONS Left Atrium (2D)3.3 (1.6-4.0cm)IVSd1.2 (0.7-1.1cm) LVDd4.8 (3.9-5.9cm)PWd1.2 (0.7-1.1cm) LVDs3.3 (2.5-4.0cm)FS (%) 31.5 % LVEF (%)59.2 (>50%) M-Mode DIMENSIONS Aortic Root3.40 (2.2-3.7cm)Aortic Cusp Exc.2.10 (1.5-2.0cm) Aortic Valve AoV Peak Ejjbvauz873.0cm/Natalie Peak GR.7mmHg Mitral Valve MV E Mfopqfdz13.0cm/sMV A Rlfiqmgd00.7cm/sE/A ratio1.2 TDI E/Lateral E'0.0E/Medial E'0.0 Pulmonary Valve PV Peak Titcranv68.1cm/sPV Peak Grad.2mmHg Tricuspid Valve TR Peak [id number]/sRAP [id number] Peak Gr.23mmHg SSOP12thOh LEFT VENTRICLE The left ventricle is normal size. There is normal left ventricular wall thickness. The left ventricular function is normal. The left ventricular ejection fraction is within the normal range. There is normal LV segmental wall motion. The left ventricular diastolic function is normal. RIGHT VENTRICLE The right ventricle is normal size. There is normal right ventricular wall thickness. The right ventricular systolic function is normal. ATRIA The left atrium size is normal. The right atrium size is normal. AORTIC VALVE The aortic valve is normal in structure. No aortic regurgitation is present. MITRAL VALVE The mitral valve is normal in structure. There is no mitral valve regurgitation noted. TRICUSPID VALVE The tricuspid valve is normal in structure. GREAT VESSELS The aortic root is normal in size. The IVC is normal in size and collapses >50% with inspiration. PERICARDIAL EFFUSION There is a trace loculated anterior pericardial effusion. <Conclusion> The left ventricle is normal size. There is normal left ventricular wall thickness. The left ventricular function is normal. The left ventricular ejection fraction is within the normal range. There is normal LV segmental wall motion. The left ventricular diastolic function is normal.
--- NOTE | 2017-03-31 17:09 | PCM.PYCHPN ---
Psychiatric Progress Note - Psychiatric Progress Note Patient seen today, length of contact: 30min Patient Chief Complaint: "I am doing little better" Problems Identified/Issues Discussed: Suicide/ homicide prevention, past psychiatric h/o, current psychiatric symptoms , medical problems, risk/benefits and alternatives of medications, medications compliance, coping strategies, substance abuse h/o, relapse prevention, importance of follow up with psychiatrist and therapist, discharge plan. Medical Problems: s/p laparoscopic appendectomy pt is on antibiotics now. was seen by surgical and medical teams see notes for more detailed information ortho consult was called quadriceps tendon tear on MRI, surgery suggested pt needs to be seen by fiberglass boat builder for clearance prior to the surgery Diagnostic Results: 03/28/17 08:34 03/28/17 08:34 Lab Results 03/28/17 08:34: Sodium 141, Potassium 4.3, Chloride 103, Carbon Dioxide 28, Anion Gap 14, BUN 17, Creatinine 0.8, Est GFR ( Amer) > 60, Est GFR (Non- Af Amer) > 60, Random Glucose 105, Calcium 9.1, Total Bilirubin 0.4, AST 18, ALT 31, Alkaline Phosphatase 51, Total Protein 7.3, Albumin 3.7, Globulin 3.7, Albumin/Globulin Ratio 1.0 L 03/28/17 08:34: WBC 9.1 D, RBC 4.06, Hgb 12.4 L, Hct 39.2 L, MCV 96.6, MCH 30.5 , MCHC 31.6, RDW 13.2, Plt Count 348, MPV 9.5 03/27/17 07:48: RPR Nonreactive 03/27/17 07:48: TSH 3rd Generation 0.63 03/27/17 07:48: Fasting Glucose 103, Triglycerides 224 H, Cholesterol 192, LDL Cholesterol Direct 146 H, HDL Cholesterol 24 L 03/26/17 20:45: Alcohol, Quantitative < 10 03/26/17 20:45: Salicylates < 1 L, Acetaminophen < 10.0 L 03/26/17 20:45: Sodium 138, Potassium 3.9, Chloride 100, Carbon Dioxide 30, Anion Gap 12, BUN 14, Creatinine 0.9, Est GFR ( Amer) > 60, Est GFR (Non- Af Amer) > 60, Random Glucose 89, Calcium 9.2, Total Bilirubin 0.5, AST 22, ALT 41, Alkaline Phosphatase 59, Total Protein 7.8, Albumin 3.9, Globulin 3.9, Albumin/Globulin Ratio 1.0 L 03/26/17 20:45: WBC 13.6 H, RBC 4.14, Hgb 12.9 L, Hct 39.7 L, MCV 95.9, MCH 31.2 , MCHC 32.5, RDW 13.3, Plt Count 371, MPV 9.6, Gran % 57.6, Lymph % (Auto) 27.2 , [place] % (Auto) 6.6 H, Eos % (Auto) 8.1 H, Baso % (Auto) 0.5, Gran # 7.83 H, Lymph # 3.7 H, [place] # 0.9 H, Eos # 1.1 H, Baso # 0.07 03/26/17 19:45: Urine Opiates Screen Negative, Urine Methadone Screen Negative, Ur Barbiturates Screen Negative, Ur Phencyclidine Scrn Negative, Ur Amphetamines Screen Negative, U Benzodiazepines Scrn Negative, U Oth Cocaine Metabols Negative, U Cannabinoids Screen Negative 03/26/17 19:45: Urine Color Yellow, Urine Appearance Clear, Urine pH 6.0, Ur Specific [place] >= 1.030, Urine Protein Negative, Urine Glucose (UA) Negative, Urine Ketones Negative, Urine Blood Negative, Urine Nitrate Negative, Urine Bilirubin Negative, Urine Urobilinogen 0.2, Ur Leukocyte Esterase Negative Vital Signs Temp Pulse Resp BP Pulse Ox 03/27/17 16:00 91 H 124/73 03/27/17 07:00 97.7 F 85 160/72 H 03/27/17 00:05 98.2 F 92 H 20 113/64 03/26/17 23:02 82 16 124/75 98 03/26/17 21:35 90 17 126/81 98 03/26/17 19:11 98.2 F 93 H 16 125/79 96 Temp Pulse Resp BP Pulse Ox 97.3 F L 91 H 20 119/74 20 L 03/30/17 07:30 03/30/17 07:30 03/29/17 07:55 03/30/17 07:30 03/30/17 07:30 MRI tear of the quadriceps tendon 03/31/17 DSM 5 Symptoms Update: Patient is a 51 year old homeless HM, with a long history of bipolar disorder, alcohol and cocaine dependence, multiple admissions-most recently at [facility] 01/29-02/03/17, poor compliance with aftercare recommendations and medications who came to the ED with depression and suicidal ideation to jump off a bridge. patient was seen today in his room, pt c/o right knee pain, pt had injury in May, Orthopedist consult appreciated, on MRI patient was found to have fear of the quadriceps tendon, suggested surgery, patient will be seen by cardiology team for clearance prior to surgery, patient is willing to have surgery. Patient reported that he is still depressed, at times hopeless, denied thoughts of harming self or others, sleep improving, "I was really sick, I wanted to end it all, now I feel little better", at present moment patient is concerned about upcoming surgery. pt denied any side effects from meds. patient denied any psychotic symptoms, pt is coherent and thought process does not demonstrate any profound disorganization but at times circumstantial. Patient denies hallucinations or paranoia. Regarding drug and alcohol use patient denies history of drug or alcohol problems however prior records indicate diagnosis of cocaine and alcohol dependency. as per RN report pt is compliant with meds no behavioral issues. pt tolerates meds well, no side effects observed or reported, AIMS 0, no EPS. 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 Glass suggested surgery,pt is willing to have surgery Mental Status Examination - Cognitive Function Orientation: Person, Place, Situation, Time Memory: Intact Attention: Poor (some improvement) Concentration: Poor (some improvement) Association: WNL Fund of Knowledge: WNL - Mood Mood: Depressed - Affect Affect: Constricted (ut more reactive today) - Speech Speech: Appropriate - Formal Thought Process Formal Thought Process: No Impairment - Suicidal Ideation Suicidal Ideation: No - Homicidal Ideation Homicidal Ideation: No Goal/Treatment Plan - Goal/Treatment Plan Need for Continued Stay: Remain at risks for inpatient hospitalization, Severe depression anxiety, Discharge may exacerbated symptoms, Severe functional impairment Progress Toward Problem(s) and Goals/Treatment Plan: milieu, structure, supportive therapy Celexa 20 mg PO DAILY start that over the weekend Neurontin 600 mg PO TID start that over the weekend trazodone 50 mg PO HS PRN start that over the weekend ortho consult, appreciated, surgery suggested, patient willing to have surgery Biomedical Service Engineer will see patient for clearance prior to surgery social work specialist evaluation Medical team and surgical team evaluation appreciated Patient is on antibiotics We'll monitor patient closely. Estimated Date of D/C: 04/05/17
--- NOTE | 2017-03-31 17:17 | PN ---
SUBJECTIVE: I saw the patient in the dayroom. He took a walk to his room. He walks slowly due to arthritis, but he is doing better. The umbilicus oozing is decreased with the antibiotic cream and the antibiotics. He is feeling a bit better with his depression with the medication. He is on Ativan, Bactroban cream, Celexa, Desyrel, Keflex, Maalox, milk of magnesia, Neurontin, and Tylenol. He is also eating quite well. PHYSICAL EXAMINATION: VITAL SIGNS: 97.6 temp, 90 pulse, 129/90 blood pressure, 22 respiratory rate. HEENT: Head is atraumatic, normocephalic. Throat is moist. NECK: Supple. HEART: Regular rate. LUNGS: Decreased breath sounds bilaterally but clear. ABDOMEN: Soft, morbidly obese, nontender. There is umbilical cord oozing not as bad that is red. It is from hernia repair. EXTREMITIES: No edema. I discussed at length that when he is done with the [facility], he has got to follow up with Dr. Johnson, who is a surgeon, to evaluate the hernia and mesh. Last labs on the and he did well. Continue with treatment and care as per psychiatry. Hopefully will continues to improve. He has had depression, anxiety, hypertension, hyperglyceridemia, obesity, leukocytosis, and umbilical infection. Kimani Boateng DO
--- NOTE | 2017-03-31 17:52 | CON ---
DATE: 03/31/2017 SUBJECTIVE: This is a 51-year-old male in the room #519, bed #1. The patient was seen for right knee discomfort. When I examined him, I can feel he has a obvious quadriceps rupture with inability to extend his knee and obvious depression just above the patella and I am going to get an MRI with a history that he did this in May of last year when he was injured himself, so we will see what the MRI says, but that is going to be extensive surgery. We will need a lot of equipment and he had previous surgery at [facility], so he wants to go back there for the surgery, so they will make arrangement for him to get the surgery once he is cleared from his present admission problems of follow him and he comes to [facility], and I will preop evaluation here. 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 The patient has been told that the surgery may not make him normal but will help him to improve his situation that is why he does not get complication such as infection or re-rupture and have to be in a cast for extended period of time. Antwon Glass DO
--- NOTE | 2017-03-31 20:35 | PN ---
DATE: 03/31/2017 SUBJECTIVE: Being worked up for quadriceps rupture tear from 05/2016. MRI confirmed that he has a chronic rupture of the quadriceps tendon, right knee and I told him that he will need correct operative surgery to repair the ruptured quadriceps tendon, preferably at [facility] where they have the equipment standing by, and he was operated there already with Dr. smith and he has to go back for another visit for postop surgery of his abdomen. I could schedule him for orthopedic surgery at that time on approximately 04/06/2017 at [facility] to do a delayed repair of the right quadriceps tendon which will need reconstruction with a possible allograft, retention sutures, and a long leg cast for 6 weeks. I told him the chance of infection is great and there is also chance of re-rupture because it is a chronic tear and is very muscular, thank god he is not a smoker. We will plan to bring him to [facility] next week for repair of the chronic rupture quadriceps tendon of the right knee. Antwon Glass DO IRIS
[2017-04-01 07:52] VITALS: RESP 20
--- NOTE | 2017-04-01 13:38 | PN ---
DATE: 04/01/2017 SUBJECTIVE: The patient is in the psychiatric floor, resting comfortably in bed. He slept fairly well. He is breathing well. He felt he is improving mentally. Also he tells me his umbilical infection with oozing has decreased. He is currently on Ativan, Bactroban cream, Celexa, Desyrel, Keflex, Maalox, milk of magnesia, Neurontin, and Tylenol. PHYSICAL EXAMINATION VITAL SIGNS: He has 97.9 temp, 90 pulse, 123/64 blood pressure, 20 respiratory rate. HEENT: Head is atraumatic, normocephalic. HEART: Regular rate. LUNGS: Decreased breath sounds, but clear. ABDOMEN: Soft, morbidly obese, nontender. There is mild oozing from the umbilicus infection, but less. EXTREMITIES: No edema. LABORATORY DATA: He has lab done on , which is very good. He knows that when he gets discharged from the psychiatric floor, he will followup with Dr. Johnson for the umbilical infection where he had hernia repaired. He has a tear of the quadriceps tendon, he is being seen by Dr. Glass also, he will need to have surgery repair from that. Continue aggressive treatment and care. Kimani Boateng DO
--- NOTE | 2017-04-01 14:43 | PCM.PYCHPN ---
Psychiatric Progress Note - Psychiatric Progress Note Patient seen today, length of contact: 30min Patient Chief Complaint: "I am doing little better" Problems Identified/Issues Discussed: Suicide/ homicide prevention, past psychiatric h/o, current psychiatric symptoms , medical problems, risk/benefits and alternatives of medications, medications compliance, coping strategies, substance abuse h/o, relapse prevention, importance of follow up with psychiatrist and therapist, discharge plan. Medical Problems: s/p laparoscopic appendectomy pt is on antibiotics now. was seen by surgical and medical teams see notes for more detailed information ortho consult was called quadriceps tendon tear on MRI, surgery suggested pt needs to be seen by economics teacher for clearance prior to the surgery Diagnostic Results: 03/28/17 08:34 03/28/17 08:34 Lab Results 03/28/17 08:34: Sodium 141, Potassium 4.3, Chloride 103, Carbon Dioxide 28, Anion Gap 14, BUN 17, Creatinine 0.8, Est GFR ( Amer) > 60, Est GFR (Non- Af Amer) > 60, Random Glucose 105, Calcium 9.1, Total Bilirubin 0.4, AST 18, ALT 31, Alkaline Phosphatase 51, Total Protein 7.3, Albumin 3.7, Globulin 3.7, Albumin/Globulin Ratio 1.0 L 03/28/17 08:34: WBC 9.1 D, RBC 4.06, Hgb 12.4 L, Hct 39.2 L, MCV 96.6, MCH 30.5 , MCHC 31.6, RDW 13.2, Plt Count 348, MPV 9.5 03/27/17 07:48: RPR Nonreactive 03/27/17 07:48: TSH 3rd Generation 0.63 03/27/17 07:48: Fasting Glucose 103, Triglycerides 224 H, Cholesterol 192, LDL Cholesterol Direct 146 H, HDL Cholesterol 24 L 03/26/17 20:45: Alcohol, Quantitative < 10 03/26/17 20:45: Salicylates < 1 L, Acetaminophen < 10.0 L 03/26/17 20:45: Sodium 138, Potassium 3.9, Chloride 100, Carbon Dioxide 30, Anion Gap 12, BUN 14, Creatinine 0.9, Est GFR ( Amer) > 60, Est GFR (Non- Af Amer) > 60, Random Glucose 89, Calcium 9.2, Total Bilirubin 0.5, AST 22, ALT 41, Alkaline Phosphatase 59, Total Protein 7.8, Albumin 3.9, Globulin 3.9, Albumin/Globulin Ratio 1.0 L 03/26/17 20:45: WBC 13.6 H, RBC 4.14, Hgb 12.9 L, Hct 39.7 L, MCV 95.9, MCH 31.2 , MCHC 32.5, RDW 13.3, Plt Count 371, MPV 9.6, Gran % 57.6, Lymph % (Auto) 27.2 , [place] % (Auto) 6.6 H, Eos % (Auto) 8.1 H, Baso % (Auto) 0.5, Gran # 7.83 H, Lymph # 3.7 H, [place] # 0.9 H, Eos # 1.1 H, Baso # 0.07 03/26/17 19:45: Urine Opiates Screen Negative, Urine Methadone Screen Negative, Ur Barbiturates Screen Negative, Ur Phencyclidine Scrn Negative, Ur Amphetamines Screen Negative, U Benzodiazepines Scrn Negative, U Oth Cocaine Metabols Negative, U Cannabinoids Screen Negative 03/26/17 19:45: Urine Color Yellow, Urine Appearance Clear, Urine pH 6.0, Ur Specific [place] >= 1.030, Urine Protein Negative, Urine Glucose (UA) Negative, Urine Ketones Negative, Urine Blood Negative, Urine Nitrate Negative, Urine Bilirubin Negative, Urine Urobilinogen 0.2, Ur Leukocyte Esterase Negative Vital Signs Temp Pulse Resp BP Pulse Ox 03/27/17 16:00 91 H 124/73 03/27/17 07:00 97.7 F 85 160/72 H 03/27/17 00:05 98.2 F 92 H 20 113/64 03/26/17 23:02 82 16 124/75 98 03/26/17 21:35 90 17 126/81 98 03/26/17 19:11 98.2 F 93 H 16 125/79 96 Temp Pulse Resp BP Pulse Ox 97.3 F L 91 H 20 119/74 20 L 03/30/17 07:30 03/30/17 07:30 03/29/17 07:55 03/30/17 07:30 03/30/17 07:30 MRI tear of the quadriceps tendon 03/31/17 DSM 5 Symptoms Update: Patient is a 51 year old homeless HM, with a long history of bipolar disorder, alcohol and cocaine dependence, multiple admissions-most recently at [facility] 01/29-02/03/17, poor compliance with aftercare recommendations and medications who came to the ED with depression and suicidal ideation to jump off a bridge. patient was seen today at the dinning area, pt said that he is anxious about upcoming surgery for his right knee (tear of the quadriceps tendon), pt said that he wants to get better and "take care of myself". Patient denies hallucinations or paranoia. pt wiling to increase celexa today, pt tolerated meds well, no side effects observed or reported, AIMS 0, no EPS. as per RN report pt is compliant with meds no behavioral issues. pt tolerates meds well, no side effects observed or reported, AIMS 0, no EPS. Impression: DSMV: as per h/o: Bipolar disorder mixed severe with psychotic features Alcohol use disorder moderate Cocaine use disorder moderate s/p laparascopic appendectomy, February 2017 Medication Change: Yes (celexa increased) Medical Record Reviewed: Yes Consults ordered or reviewed: medical and surgical consult appreciated ortho consult will be called, right knee injury May 2016 MRI was done, was found to have quadriceptendon tear Dr. Glass suggested surgery,pt is willing to have surgery Mental Status Examination - Cognitive Function Orientation: Person, Place, Situation, Time Memory: Intact Attention: Poor (some improvement) Concentration: Poor (some improvement) Association: WNL Fund of Knowledge: WNL - Mood Mood: Depressed ("I feel anxious about surgery") - Affect Affect: Constricted (ut more reactive today) - Speech Speech: Appropriate - Formal Thought Process Formal Thought Process: No Impairment - Suicidal Ideation Suicidal Ideation: No - Homicidal Ideation Homicidal Ideation: No Goal/Treatment Plan - Goal/Treatment Plan Need for Continued Stay: Remain at risks for inpatient hospitalization, Severe depression anxiety, Discharge may exacerbated symptoms, Severe functional impairment Progress Toward Problem(s) and Goals/Treatment Plan: milieu, structure, supportive therapy Celexa 30 mg PO DAILY start that over the weekend Neurontin 600 mg PO TID start that over the weekend trazodone 50 mg PO HS PRN start that over the weekend ortho consult, appreciated, surgery suggested, patient is willing to have surgery [employer] will see patient for clearance prior to surgery adoption social worker evaluation Medical team and surgical team evaluation appreciated Patient is on antibiotics We'll monitor patient closely. tentative discharge Tuesday-Tuesday Estimated Date of D/C: 04/05/17
--- NOTE | 2017-04-01 23:59 | CON ---
CARDIOLOGY CONSULTATION DATE: 04/01/2017 HISTORY OF PRESENT ILLNESS: The patient is a 51-year-old male who presents to hospital with depression and has been treated in the psychiatric zhao. The patient is notable for having an injury in his knee, which will require surgery. The patient is free of cardiac history. No chest pain or shortness of breath. No previous myocardial infarction. There is a question of hypertension. SOCIAL HISTORY The patient does not smoke. REVIEW OF SYSTEMS: Review of systems was reviewed in detail. No cardiac symptomatology is noted. PHYSICAL EXAMINATION GENERAL: The patient is an obese male in no acute distress. VITAL SIGNS: Stable. NECK: Negative JVD. LUNGS: Without rales. HEART: S1 and S2. EXTREMITIES: Without edema. The EKG is within normal limits. The laboratories were reviewed and found to be unremarkable. Troponins are negative. Echocardiogram reveals good LV function. IMPRESSION 1. Depression treated on the psych floor. 2. Obesity. 3. Questionable history of hypertension. 4. Good LV function. 5. Pending surgery on his knee with plan to being transferred to [facility]. PLAN: Given these findings, the patient's cardiac status is stable. There is no evidence for acute cardiac issues. Pj Lopez MD
--- NOTE | 2017-04-02 08:50 | PCM.PYCHPN ---
Psychiatric Progress Note - Psychiatric Progress Note Patient seen today, length of contact: 25 min Patient Chief Complaint: "okay" Problems Identified/Issues Discussed: I reviewed recent notes and met with patient at bedside. Patient has been calm and cooperative on the unit. He remains oriented to location, month, year and circumstances. Reports his mood is "okay" and feels he is getting better. Patient is fairy coherent though his responses are brief. Thought process does not demonstrate any profound disorganization. Patient denies hallucinations or paranoia. Affect is demonstrating improved reactivity since last weekend. He has been tolerating his medications and denies any new discomfort or pain. Staff notes indicate that patient has been calm and cooperative. Appears more talkative and interactive. Thus far there have been no behavioral issues on the unit. Diagnostic Results: Bipolar disorder mixed severe with psychotic features Alcohol use disorder moderate Cocaine use disorder moderate s/p laparascopic appendectomy, February 2017 Medication Change: No ( ) Medical Record Reviewed: Yes Mental Status Examination - Cognitive Function Orientation: Person, Place, Situation, Time Memory: Intact Attention: Poor (some improvement) Concentration: Poor (some improvement) Association: WNL Fund of Knowledge: WNL - Mood Mood: Depressed ("I feel anxious about surgery") - Affect Affect: Constricted (improved reactivity) - Speech Speech: Appropriate - Formal Thought Process Formal Thought Process: No Impairment - Suicidal Ideation Suicidal Ideation: No - Homicidal Ideation Homicidal Ideation: No Goal/Treatment Plan - Goal/Treatment Plan Need for Continued Stay: Remain at risks for inpatient hospitalization, Severe depression anxiety, Discharge may exacerbated symptoms, Severe functional impairment Progress Toward Problem(s) and Goals/Treatment Plan: * c/w current tx and plan * No new weekend labs * Vitals reviewed and noted below Selected Entries 04/01/17 04/01/17 07:51 16:00 Temperature 97.9 F Pulse Rate 90 86 Respiratory 20 Rate Blood Pressure 134/92 H 113/72 Estimated Date of D/C: 04/05/17
--- NOTE | 2017-04-02 18:18 | CP.PCM.PN ---
Subjective - Date & Time of Evaluation Date of Evaluation: 04/02/17 Time of Evaluation: 09:45 - Subjective Subjective: Parvez Amado D.O. PGY-2, Internal Medicine Log Handler Progress Note 51 year old male s/p laparoscopic appendectomy and ventral hernia repair [place] [facility] [place] who is currently in the psychiatric unit but had complaints of surgical site drainage. Patient was seen and examined at bedside. Patient at this time has no complaints, states that he is doing well and that his wound is starting to heal nicely. Patient denies any more drainage. Patient has been applying bactroban as instructed. Otherwise no acute findings. Objective - Vital Signs/Intake and Output Vital Signs (last 24 hours): Temp Pulse Resp BP Pulse Ox 98.2 F 83 20 111/64 20 L 04/02/17 06:37 04/02/17 16:53 04/02/17 06:37 04/02/17 16:53 03/30/17 07:30 - Medications Medications: Current Medications Acetaminophen (Tylenol 325mg Tab) 650 mg PO Q4H PRN PRN Reason: Pain, Mild (1-3) Al Hydrox/Mg Hydrox/Simethicone (Maalox Plus 30 Ml) 30 ml PO DAILY PRN PRN Reason: Upset Stomach Cephalexin Monohydrate (Keflex) 500 mg PO Q6 NICOLE PRN Reason: Protocol Last Admin: 04/02/17 14:23 Dose: 500 mg Citalopram Hydrobromide (Celexa) 30 mg PO DAILY [facility] Last Admin: 04/02/17 09:32 Dose: 30 mg Gabapentin (Neurontin) 600 mg PO TID NICOLE PRN Reason: Protocol Last Admin: 04/02/17 17:46 Dose: 600 mg Lorazepam (Ativan) 1 mg PO BID NIOCLE PRN Reason: Protocol Last Admin: 04/02/17 17:46 Dose: 1 mg Magnesium Hydroxide (Milk Of Magnesia) 30 ml PO DAILY PRN PRN Reason: Constipation Mupirocin (Bactroban Ointment) 0 gm TOP BID [facility] Last Admin: 04/02/17 17:46 Dose: 2 % Trazodone HCl (Desyrel) 50 mg PO HS [facility] Last Admin: 04/01/17 21:13 Dose: 50 mg - Labs Labs: 03/29/17 08:00 03/29/17 08:00 - Constitutional Appears: Well, Non-toxic, No Acute Distress - Head Exam Head Exam: ATRAUMATIC, NORMOCEPHALIC - Eye Exam Eye Exam: EOMI, PERRL - ENT Exam ENT Exam: Mucous Membranes Moist, Normal Exam - Neck Exam Neck Exam: Full ROM, Normal Inspection - Respiratory Exam Respiratory Exam: Clear to Ausculation Bilateral. absent: Rales, Rhonchi, Wheezes - Cardiovascular Exam Cardiovascular Exam: RRR, +S1, +S2. absent: Gallop, Rubs, +S4, Murmur - GI/Abdominal Exam GI & Abdominal Exam: Soft, Normal Bowel Sounds. absent: Distended, Tenderness Additional comments: post surgical sites are healing, improved, particularly infra-umbilical, no drainage noted, no fluctuance, only some mild residual erythema near eschar edges - Extremities Exam Extremities Exam: Full ROM, Normal Capillary Refill - Neurological Exam Neurological Exam: Alert, Awake, CN II-XII Intact, Oriented x3 - Skin Skin Exam: Warm Assessment and Plan - Assessment and Plan (Free Text) Assessment: 51 year old male s/p laparoscopic appendectomy and ventral hernia repair at [facility] recently who is currently in the psychiatric unit but had complaints of surgical site drainage. Plan: 1. Post operative skin infection Healing well at this time Continue with keflex now day 6 as well as applying bactroban BID Surgery seen patient and signed off, states can do home self-wound care Patient to f/u with his surgeon from [facility] 2. Depression Patient undergoing psychiatric care at this time in psych unit Thank you for the pleasure of participating in the care of this patient. Patient was seen and examined and case was discussed at length with attending physician.
--- NOTE | 2017-04-03 09:40 | PCM.PYCHPN ---
Psychiatric Progress Note - Psychiatric Progress Note Patient seen today, length of contact: 25 min Patient Chief Complaint: "good" Problems Identified/Issues Discussed: I reviewed recent notes and met with patient at bedside. Patient has been calm , groomed and cooperative on the unit. He remains oriented to location, month, year and circumstances. Reports his mood is "good" and feels he is getting better. Patient is fairy coherent though his responses are brief. Thought process does not demonstrate any profound disorganization. Patient denies hallucinations or paranoia. Affect is demonstrating improved reactivity since last weekend. He has been tolerating his medications and denies any new discomfort or pain. Staff notes indicate that patient has been calm, pleasant and cooperative. Appears more talkative and interactive. Participating in groups. Thus far there have been no behavioral issues on the unit. Diagnostic Results: Bipolar disorder mixed severe with psychotic features Alcohol use disorder moderate Cocaine use disorder moderate s/p laparascopic appendectomy, February 2017 Medication Change: No ( ) Medical Record Reviewed: Yes Mental Status Examination - Cognitive Function Orientation: Person, Place, Situation, Time Memory: Intact Attention: Poor (some improvement) Concentration: Poor (some improvement) Association: WNL Fund of Knowledge: WNL - Mood Mood: Depressed ("good") - Affect Affect: Constricted (improved reactivity) - Speech Speech: Appropriate - Formal Thought Process Formal Thought Process: No Impairment - Suicidal Ideation Suicidal Ideation: No - Homicidal Ideation Homicidal Ideation: No Goal/Treatment Plan - Goal/Treatment Plan Need for Continued Stay: Remain at risks for inpatient hospitalization, Severe depression anxiety, Discharge may exacerbated symptoms, Severe functional impairment Progress Toward Problem(s) and Goals/Treatment Plan: * c/w current tx and plan * Appreciate f/u by Dr. Hannon on 04/02/17~Post operative skin infection is healing well, to c/w keflex as well as bactroban BID * No new weekend labs * Vitals reviewed and noted below 04/02/17 04/02/17 06:37 16:53 Temperature 98.2 F Pulse Rate 84 83 Respiratory 20 Rate Blood Pressure 113/68 111/64 Estimated Date of D/C: 04/05/17
--- NOTE | 2017-04-03 14:31 | CP.PCM.PN ---
Subjective - Date & Time of Evaluation Date of Evaluation: 04/03/17 Time of Evaluation: 12:30 - Subjective Subjective: Parvez Amado D.O. PGY-2, Internal Medicine Barometers Calibrator Progress Note 51 year old male s/p laparoscopic appendectomy and ventral hernia repair [place] [facility] [place] who is currently in the psychiatric unit but had complaints of surgical site drainage. Patient was seen and examined at bedside. Patient is in good spirits today, very pleasant and cooperative. Patient states that his wound continues to slowly improved and he has been doing well with making sure to place the bacitracin ointment on. Otherwise no new complaints. Objective - Vital Signs/Intake and Output Vital Signs (last 24 hours): Temp Pulse Resp BP Pulse Ox 97.8 F 91 H 20 124/82 20 L 04/03/17 08:18 04/03/17 08:18 04/03/17 08:18 04/03/17 08:18 03/30/17 07:30 - Medications Medications: Current Medications Acetaminophen (Tylenol 325mg Tab) 650 mg PO Q4H PRN PRN Reason: Pain, Mild (1-3) Al Hydrox/Mg Hydrox/Simethicone (Maalox Plus 30 Ml) 30 ml PO DAILY PRN PRN Reason: Upset Stomach Cephalexin Monohydrate (Keflex) 500 mg PO Q6 NICOLE PRN Reason: Protocol Last Admin: 04/03/17 13:11 Dose: 500 mg Citalopram Hydrobromide (Celexa) 30 mg PO DAILY [facility] Last Admin: 04/03/17 08:59 Dose: 30 mg Gabapentin (Neurontin) 600 mg PO TID NICOLE PRN Reason: Protocol Last Admin: 04/03/17 13:11 Dose: 600 mg Lorazepam (Ativan) 1 mg PO BID NICOLE PRN Reason: Protocol Last Admin: 04/03/17 08:59 Dose: 1 mg Magnesium Hydroxide (Milk Of Magnesia) 30 ml PO DAILY PRN PRN Reason: Constipation Mupirocin (Bactroban Ointment) 0 gm TOP BID [facility] Last Admin: 04/03/17 08:59 Dose: 1 applic Trazodone HCl (Desyrel) 50 mg PO HS [facility] Last Admin: 04/02/17 23:12 Dose: 50 mg - Labs Labs: 03/29/17 08:00 03/29/17 08:00 - Constitutional Appears: Well, Non-toxic, No Acute Distress - Head Exam Head Exam: ATRAUMATIC, NORMOCEPHALIC - Eye Exam Eye Exam: EOMI, PERRL - ENT Exam ENT Exam: Mucous Membranes Moist, Normal Exam - Neck Exam Neck Exam: Full ROM, Normal Inspection - Respiratory Exam Respiratory Exam: Clear to Ausculation Bilateral. absent: Rales, Rhonchi, Wheezes - Cardiovascular Exam Cardiovascular Exam: RRR, +S1, +S2. absent: Gallop, Rubs, +S4, Murmur - GI/Abdominal Exam GI & Abdominal Exam: soft, nontender, nondistended, obese, post surgical sites unchanged from when last seen, bacitracin in place, healing appropriately - Extremities Exam Extremities Exam: Full ROM, Normal Capillary Refill - Neurological Exam Neurological Exam: Alert, Awake, CN II-XII Intact, Oriented x4 - Skin Skin Exam: Warm Assessment and Plan - Assessment and Plan (Free Text) Assessment: 51 year old male s/p laparoscopic appendectomy and ventral hernia repair at [facility] recently who is currently in the psychiatric unit but had complaints of surgical site drainage. Plan: 1. Post operative sub-umbilical skin infection - improving Afebrile Cont keflex D7 + bactroban BID WCx negative D1 To f/u with surgeon from [facility] 2. Depression Patient undergoing psychiatric care at this time in psych unit Thank you for the pleasure of participating in the care of this patient. Patient was seen and examined and case was discussed at length with attending physician.
--- NOTE | 2017-04-03 23:31 | PN ---
DATE: 04/03/2017 SUBJECTIVE: The patient is seen in room 519, bed 1. The patient was seen and examined with medical library assistant. Please refer to the progress note done by the medical library assistant for 04/03/2017. The patient's vital signs and diagnostic data was reviewed. The patient was examined in room 519, bed 1. CURRENT MEDICATIONS: Ativan 1 mg twice a day, Bactroban cream to the abdominal wall area twice a day, Celexa 30 mg daily, Desyrel 50 mg at bedtime, Keflex 500 mg q. 6 hours, milk of magnesia, Maalox p.r.n., Neurontin 600, 3 times a day, Tylenol 650 q. 4 hours p.r.n. IMPRESSION: 1. Morbid obesity with elevated body mass index of 43. 2. Bipolar disorder. 3. Alcohol and cocaine dependence. 4. Abdominal wall cellulitis. 5. Status post laparoscopic appendectomy. 6. Bipolar disorder severe, mixed with psychotic features. 7. Alcohol and cocaine use disorder. 8. Morbid obesity. 9. Leukocytosis. 10. Mild normocytic anemia. 11. Hypercholesteremia and hypertriglyceridemia with an elevated LDL, decreased HDL. 12. Right knee quadriceps tendon tear with atrophy and right knee quadriceps tendon rupture with a small right knee effusion. 13. Status post laparoscopic appendectomy and ventral hernia repair with surgical site cellulitis with some drainage. 14. Postoperative subumbilical abdominal wall cellulitis. 15. Depression. PLAN: At this time, the patient is to be continued on the Surgical, Infectious Disease, Orthopedics, and Cardiology follow up. At present, the patient's further management will be dependent upon the patient's clinical condition. Hemodynamic status are as per patient's response to therapeutic intervention and as per recommendation by all the physician involved in the care of the patient. Please refer to the medical library assistant progress note from today for further details. Dictated and electronically signed, not read. Signing off, Saul Robles MD
[2017-04-04 08:00] VITALS: BP 134/81; PULSE 91; TEMP 97.9
--- NOTE | 2017-04-04 20:09 | CP.PCM.PN ---
Subjective - Date & Time of Evaluation Date of Evaluation: 04/04/17 Time of Evaluation: 07:05 - Subjective Subjective: Pt s/e bedside. He states that his abdominal wounds are better and that he is applying his Bacitracin judiciously. Pt states that he has knee surgery tomorrow at [facility]. He is to be discharged today. No further complaints. Objective - Vital Signs/Intake and Output Vital Signs (last 24 hours): Temp Pulse Resp BP Pulse Ox 97.9 F 91 H 20 134/81 20 L 04/04/17 07:59 04/04/17 07:59 04/04/17 07:59 04/04/17 07:59 03/30/17 07:30 - Labs Labs: 03/29/17 08:00 03/29/17 08:00 - Constitutional Appears: Well - Head Exam Head Exam: ATRAUMATIC, NORMAL INSPECTION, NORMOCEPHALIC - Eye Exam Eye Exam: EOMI, Normal appearance, PERRL Pupil Exam: NORMAL ACCOMODATION, PERRL - ENT Exam ENT Exam: Mucous Membranes Moist, Normal Exam - Neck Exam Neck Exam: Full ROM, Normal Inspection - Respiratory Exam Respiratory Exam: Clear to Ausculation Bilateral, NORMAL BREATHING PATTERN - Cardiovascular Exam Cardiovascular Exam: REGULAR RHYTHM - GI/Abdominal Exam GI & Abdominal Exam: Soft Additional comments: Pt's wound is healing well. Wounds are scabbed over with no purulent discharge. Freshly applied bacitracin. - Extremities Exam Extremities Exam: Full ROM, Normal Capillary Refill, Normal Inspection - Back Exam Back Exam: NORMAL INSPECTION - Neurological Exam Neurological Exam: Alert, Awake, CN II-XII Intact, Normal Gait, Oriented x3 - Psychiatric Exam Psychiatric exam: Normal Affect, Normal Mood - Skin Skin Exam: Intact Assessment and Plan - Assessment and Plan (Free Text) Assessment: 51 year old male s/p laparoscopic appendectomy and ventral hernia repair at [facility] recently who is currently in the psychiatric unit but had complaints of surgical site drainage. Plan: 1. Post operative sub-umbilical skin infection - improving Afebrile Cont keflex D8 + bactroban BID WCx negative D2 To f/u with surgeon from [facility] 2. Depression Patient undergoing psychiatric care at this time in psych unit Thank you for the pleasure of participating in the care of this patient.
== END 2017-04-04 18:03 | disposition home or self-care (01) | DRG 885 ==
LOC: ED 18:51 → ERH 21:33 → PSYC 21:33 → UNDOADMIN 21:33 → ERH 23:34 → PSYC 23:34 → UNDOADMIN 03-27 01:00
PROVIDERS: ADMIT Psychiatry & Neurology Psychiatry; ATTEND Psychiatry & Neurology Psychiatry
DX: F31.64 Bipolar disorder, current episode mixed, severe, with psychotic features (principal); R45.851 Suicidal ideations; F11.20 Opioid dependence, uncomplicated; F14.20 Cocaine dependence, uncomplicated; Z68.41 Body mass index [BMI] 40.0-44.9, adult; L03.311 Cellulitis of abdominal wall; F10.239 Alcohol dependence with withdrawal, unspecified; T81.4XXA Infection following a procedure, initial encounter; I10 Essential (primary) hypertension; D64.9 Anemia, unspecified; E66.01 Morbid (severe) obesity due to excess calories; F41.9 Anxiety disorder, unspecified; E78.5 Hyperlipidemia, unspecified; E78.1 Pure hyperglyceridemia; E78.00 Pure hypercholesterolemia, unspecified; F10.20 Alcohol dependence, uncomplicated; K21.9 Gastro-esophageal reflux disease without esophagitis; M19.90 Unspecified osteoarthritis, unspecified site; M25.461 Effusion, right knee; Z79.899 Other long term (current) drug therapy; Z87.891 Personal history of nicotine dependence; Z90.49 Acquired absence of other specified parts of digestive tract; Z91.018 Allergy to other foods; R40.2412 Glasgow coma scale score 13-15, at arrival to emergency department; K59.00 Constipation, unspecified; Z56.0 Unemployment, unspecified; S76.111D Strain of right quadriceps muscle, fascia and tendon, subsequent encounter; Z59.0 Homelessness; M62.551 Muscle wasting and atrophy, not elsewhere classified, right thigh; B95.7 Other staphylococcus as the cause of diseases classified elsewhere